=== PATIENT | female | born 1975 | race Two or more races ===

== ENCOUNTER → 2020-05-26 | Outpatient (CLI) | payer OTHER ==
[2020-05-26 16:01] LABS: BASO % 0.2 % (0.0-1.0); EOS # 0.2 10^3/uL (0.0-0.5); EOS % 1.8 % (0.0-3.0); HEMATOCRIT 48.6 % (36.0-47.0); HEMOGLOBIN 16.3 g/dl (12.0-15.5); LYMPH # 1.9 10^3/uL (1.5-5.0); LYMPH % 21.9 % (24.0-44.0); MEAN CORPUSCULAR HGB CONC 33.5 g/dl (32.0-36.5); MEAN CORPUSCULAR VOLUME 89.5 fl (80.0-96.0); MONO # 0.7 10^3/uL (0.0-0.8); MONO % 8.2 % (0.0-5.0); NEUTROPHILS # 5.8 10^3/uL (1.5-8.5); NEUTROPHILS % 67.7 % (36.0-66.0); PLATELET COUNT, AUTOMATED 268 10^3/uL (150-450); RED BLOOD COUNT 5.43 10^6/uL (4.00-5.40); WHITE BLOOD COUNT 8.5 10^3/uL (4.0-10.0)
[2020-05-26 16:42] LABS: ALBUMIN 4.1 GM/DL (3.2-5.2); ALT/SGPT 28 U/L (12-78); BILIRUBIN,TOTAL 0.6 MG/DL (0.2-1.0); BLOOD UREA NITROGEN 14 MG/DL (7-18); CALCIUM LEVEL 9.9 MG/DL (8.5-10.1); CARBON DIOXIDE LEVEL 29 MEQ/L (21-32); CHLORIDE LEVEL 102 MEQ/L (98-107); CHOLESTEROL LEVEL 266 MG/DL (<200); CHOLESTEROL RISK RATIO 5.115 (<5); CREATININE FOR GFR 0.72 MG/DL (0.55-1.30); FREE T4 1.15 NG/DL (0.76-1.46); GLOMERULAR FILTRATION RATE > 60.0 (>58); GLUCOSE, FASTING 99 MG/DL (70-100); HDL CHOLESTEROL 52 MG/DL (>40); LDL CHOLESTEROL 172 MG/DL (<100); NON-HDL-C 214 MG/DL; POTASSIUM SERUM 3.7 MEQ/L (3.5-5.1); SODIUM LEVEL 137 MEQ/L (136-145); TOTAL PROTEIN 7.5 GM/DL (6.4-8.2); TRIGLYCERIDES LEVEL 210 MG/DL (<150)
[2020-05-26 17:49] LABS: HEMOGLOBIN A1c 5.2 %
== END ==
LOC: M WUC 11:33
PROVIDERS: ATTEND Student in an Organized Health Care Education/Training Program
DX: R53.83 Other fatigue (principal); E66.9 Obesity, unspecified
CPT/HCPCS: 36415; 80053; 80061; 83036; 84439; 84443; 85025; G0463

== ENCOUNTER → 2020-06-30 | Outpatient (CLI) | payer OTHER ==
--- NOTE | 2020-06-30 16:48 | REP ---
INDICATION: ENLARGED LYMPH NODE. COMPARISON: None. TECHNIQUE: Real-time sonographic evaluation of thyroid performed. FINDINGS: Right lobe of the thyroid measures 5.3 x 1.7 x 1.8 cm and left lobe 5.3 x 2.0 x 2.6 cm. A heterogeneous nodule is seen in the isthmus measuring 1.1 x 0.7 x 0.9 cm. A hypoechoic nodule in the upper right lobe measures 5 mm. An isoechoic heterogeneous nodule in the mid to lower right lobe measures 1.2 x 0.9 x 1.0 cm. There is a predominantly cystic nodule in the left lower pole with appears to be a be a peripheral isoechoic solid component. This measures 2.7 x 2. 2 x 2.9 cm. There is an adjacent lobulated cyst which measures 10 x 6 x 8 mm. In the left upper pole a hypoechoic nodule has a maximum diameter 4 mm. IMPRESSION: Bilateral cystic and solid nodules as discussed above. The largest solid nodule on the right is a TR 3 lesion according to TI-RADS criteria. Since it is less than 1.5 cm in diameter, no follow-up is needed. <Electronically signed by Ortega Robins > 06/30/20 [id number]
== END ==
LOC: M RAD 13:03
PROVIDERS: ATTEND Student in an Organized Health Care Education/Training Program
DX: E04.2 Nontoxic multinodular goiter (principal)

== ENCOUNTER → 2020-07-02 | Outpatient (CLI) | payer OTHER | LOC: M LABSMTC 13:24 | PROVIDERS: ATTEND Family Medicine | DX: Z11.52 Encounter for screening for COVID-19 (principal) | CPT/HCPCS: C9803; U0003 ==

== ENCOUNTER → 2020-07-23 | Outpatient (REF) | payer OTHER | LOC: M SFHCLERA 15:59 | PROVIDERS: ATTEND Student in an Organized Health Care Education/Training Program | DX: J06.9 Acute upper respiratory infection, unspecified (principal) ==

== ENCOUNTER → 2020-08-04 | Outpatient (CLI) | payer OTHER ==
[2020-08-04 11:23] LABS: BASO % 0.3 % (0.0-1.0); EOS # 0.1 10^3/uL (0.0-0.5); EOS % 1.1 % (0.0-3.0); HEMATOCRIT 44.2 % (36.0-47.0); LYMPH # 1.5 10^3/uL (1.5-5.0); LYMPH % 14.5 % (24.0-44.0); MEAN CORPUSCULAR HEMOGLOBIN 29.8 pg (27.0-33.0); MEAN CORPUSCULAR HGB CONC 33.9 g/dl (32.0-36.5); MEAN CORPUSCULAR VOLUME 87.9 fl (80.0-96.0); MONO # 1.3 10^3/uL (0.0-0.8); MONO % 11.9 % (2.0-8.0); NEUTROPHILS # 7.6 10^3/uL (1.5-8.5); NEUTROPHILS % 71.8 % (36.0-66.0); PLATELET COUNT, AUTOMATED 239 10^3/uL (150-450); RED BLOOD COUNT 5.03 10^6/uL (4.00-5.40); WHITE BLOOD COUNT 10.6 10^3/uL (4.0-10.0)
[2020-08-04 12:02] LABS: ALBUMIN 3.9 GM/DL (3.2-5.2); ALT/SGPT 20 U/L (12-78); BILIRUBIN,TOTAL 1.1 MG/DL (0.2-1.0); BLOOD UREA NITROGEN 17 MG/DL (7-18); CALCIUM LEVEL 8.8 MG/DL (8.5-10.1); CARBON DIOXIDE LEVEL 25 MEQ/L (21-32); CHLORIDE LEVEL 104 MEQ/L (98-107); CREATININE FOR GFR 0.59 MG/DL (0.55-1.30); GLOMERULAR FILTRATION RATE > 60.0 (>58); GLUCOSE, FASTING 110 MG/DL (70-100); POTASSIUM SERUM 4.2 MEQ/L (3.5-5.1); SODIUM LEVEL 136 MEQ/L (136-145); TOTAL PROTEIN 6.9 GM/DL (6.4-8.2)
== END ==
LOC: M WUC 08:26
PROVIDERS: ATTEND Internal Medicine Hematology & Oncology
DX: D45 Polycythemia vera (principal)

== ENCOUNTER → 2020-08-12 | Outpatient (CLI) | payer OTHER ==
--- NOTE | 2020-08-12 09:11 | REP ---
INDICATION: POLYCYTHEMIA, EVAL SPLEEN SIZE COMPARISON: None TECHNIQUE: Real time B-mode rice scale ultrasound examination using curved array transducer. FINDINGS: Liver demonstrates coarsened echotexture and minimally increased parenchymal echogenicity suggesting hepatocellular disease/fatty infiltration. No focal hepatic lesions are identified and there is no evidence for hepatomegaly (liver measures 16.5 cm in craniocaudal length). Visualized portions of the pancreas are normal. The spleen is mildly enlarged measuring 11.5 x 10.4 x 4.5 cm (splenic index 540). No focal splenic lesions are identified. Gallbladder is partially contracted but without obvious gallstones, wall thickening, or pericholecystic fluid. No biliary ductal dilatation is appreciated and the common bile duct measures 3 mm diameter. The bilateral kidneys are normal in reniform shape without hydronephrosis. Right kidney measures 12.4 x 6.1 x 4.4 cm. Left kidney measures 11.6 x 6.0 x 6.5 cm. Visualized portions of the abdominal aorta measure up to 1.7 cm maximal diameter, but incompletely evaluated due to interposed bowel gas. No ascites noted. IMPRESSION: 1. Mild splenomegaly without focal splenic lesion. 2. Mild changes to the liver suggesting fatty infiltration. <Electronically signed by Zander Lord > 08/12/20 [id number]
== END ==
LOC: M RAD 08:19
PROVIDERS: ATTEND Internal Medicine Hematology & Oncology
DX: D45 Polycythemia vera (principal)

== ENCOUNTER → 2021-01-04 | Outpatient (CLI) | payer OTHER ==
--- NOTE | 2021-01-05 11:50 | REP ---
INDICATION: LOW BACK PAIN COMPARISON: None. TECHNIQUE: AP, lateral, bilateral oblique views left foot. FINDINGS: The osseous structures and joint spaces are intact and normal. There is no evidence for acute fracture or dislocation. Surrounding soft tissues are unremarkable. No subcutaneous emphysema or radiodense foreign body. IMPRESSION: Age-appropriate left foot radiographs. No acute fracture or dislocation. <Electronically signed by Zander Lord > 01/05/21 [id number]
--- NOTE | 2021-01-05 11:52 | REP ---
INDICATION: LOW BACK PAIN COMPARISON: None. TECHNIQUE: AP, lateral, coned-down views of the lumbar spine. FINDINGS: Three views of the lumbosacral spine demonstrate satisfactory alignment and lordosis without acute fracture / compression injury or subluxation. Mild age-related changes include minimal endplate sclerosis and mild marginal osteophyte formation. Subtle disc space narrowing at L3-4 and L5-S1 cannot be excluded.. IMPRESSION: 1. No acute fracture / compression injury or subluxation. 2. Very minimal degenerative changes. <Electronically signed by Zander Lord > 01/05/21 [id number]
== END ==
LOC: M RAD 14:54
PROVIDERS: ATTEND Student in an Organized Health Care Education/Training Program
DX: M54.5 Low back pain (principal)